=== PATIENT | female | born 1950 | race African-American/Black ===

== ENCOUNTER 2016-06-02 09:50 | Outpatient (CLI) | payer MEDICARE, BC ==
--- NOTE | 2016-06-02 15:45 | RAD ---
RIGHT KNEE THREE VIEWS 06/02/16 Minor degenerative changes are present consisting of osteophytes. There is not significant joint spa ce narrowing. No joint effusion or fracture was seen. 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 The cortex is intact and I doubt that this is a true area of concern. IMPRESSION: A few minor osteophytes, otherwise no acute finding. POS: [facility]
--- NOTE | 2016-06-02 15:46 | RAD ---
LEFT KNEE THREE VIEWS 06/02/16 Comparison is made with views of the right knee. Findings are similar showing a few tiny osteophytes but no joint space narrowing or significant alterations of the articular surfaces. No fracture or j oint effusion was seen. IMPRESSION: Minor osteophytes. POS: [facility]
--- NOTE | 2016-06-02 16:03 | ULT ---
THYROID ULTRASOUND: DATE: 06/02/16. FINDINGS: Ultrasonography of the thyroid gland was performed as a recent MRI of the neck showed some T1 and T2 lesions in the right lobe of the thyroid gland. Documentary images and worksheets were provided an d reviewed from the study. The right lobe measures 4.1 x 1.7 x 1.5 cm. There are at least 3 small lesions within it in the mid dle third of the gland. The largest measures 1.2 cm in diameter and may have a small calcification at its periphery, but appears mostly cystic. The second measures 0.7 cm in diameter and is mostly c ystic. The smallest is 4 mm in diameter and is hypoechoic and may have some solid elements in it. The left lobe of the thyroid gland measures 3.9 x 1.5 x 1.4 cm. There is a tiny 2 mm hypoechoic foc us in its middle third that is too small to completely characterize as to whether it is cystic or so lid. On at least 1 image, there is a suggestion that there could be a calcification at its peripher y, but this is less certain. IMPRESSION: 1. The overall thyroid size is not excessive. 2. Three cystic or hypoechoic lesions in the right lobe of the thyroid gland and 1 tiny 2 mm hypoec hoic lesion in the middle third of the left lobe. These are indeterminate for malignancy, though th e multiple nature of the findings and the fact that most appear cystic mitigates more towards a kt gn cause. Followup is suggested to determine when and how often the patient should be reexamined, o r if any truly bear reason to be biopsied. POS: [facility]
== END 2016-06-02 09:51 | disposition home or self-care (01) ==
LOC: BURULT 09:50
PROVIDERS: ATTEND Physical Medicine & Rehabilitation
DX: E04.1 Nontoxic single thyroid nodule (principal); M25.569 Pain in unspecified knee
CPT/HCPCS: 76536

== ENCOUNTER 2016-09-03 01:29 | Emergency (ER) | payer MEDICARE, BC ==
[2016-09-03] MEDS ORDERED: predniSONE 20 MG TAB ONE (02:46)
[2016-09-03] MEDS ORDERED: HYDROcodone/Acetaminophen 5/325 mg Tablet ONE (02:47)
--- NOTE | 2016-09-03 08:42 | RAD ---
LEFT HIP 2 VIEWS: Date: 09/03/16 Comparison made with the 11/17/15 study. FINDINGS: No acute injury was seen. The hip joint space is normal and the articular surfaces are smooth. There are no particular arthritic changes of concern. No area of bony destruction seen. The adjacent pubi c ring appears intact. There appears to have been prior SI joint fusion bilaterally. IMPRESSION: No acute bony findings. POS: [facility]
== END 2016-09-03 02:52 | disposition home or self-care (01) ==
LOC: BURERS 01:29
DX: M25.552 Pain in left hip (principal); I25.2 Old myocardial infarction; E78.5 Hyperlipidemia, unspecified; I25.10 Atherosclerotic heart disease of native coronary artery without angina pectoris
CPT/HCPCS: J7506

== ENCOUNTER 2018-05-20 16:21 | Emergency (ER) | payer MEDICARE, BC ==
[2018-05-20] MEDS ORDERED: Ketorolac Tromethamine 30 MG/ML VIAL ONE (16:54)
[2018-05-20] MEDS ORDERED: Ondansetron PF 4 MG/2 ML Vial ONE (16:54)
[2018-05-20 17:51] LABS: Bilirubin Small (Negative); Blood, Urine Trace (Negative); Clarity Clear (Clear); Glucose, Urine (Dipstick) Negative (Negative); Leukocyte Trace (Negative); Nitrite Negative (Negative); Protein, Urine (Dipstick) Negative (Neg-Trace); Specific Gravity, Urine 1.025 (1.005-1.030)
[2018-05-20 17:55] LABS: RBC/HPF 0-3 HPF (0-3); WBC/HPF 0-3 HPF (0-3)
[2018-05-20 17:56] LABS: Bacteria/HPF 2+ HPF (None Seen); Other Microscopic Description MUCOUSE THREADS
[2018-05-20 18:26] LABS: #Basophils 0.1 thou/uL (0.0-0.2); #Lymphocytes 0.2 thou/uL (1.20-3.40); #Monocytes 0.2 thou/uL (0.11-0.59); #Neutrophils 6.4 thou/uL (1.40-6.50); %Basophils 0.9 % (0.0-1.0); %Eosinophils 0.1 % (0.0-10.0); %Lymphocytes 3.2 % (21.0-51.0); %Monocytes 3.5 % (0.0-10.0); %Neutrophils 92.3 % (42.0-75.0); Hemoglobin 12.6 g/dL (12.0-16.0); Mean Corpuscular HGB CONC 31.1 g/dL (32.0-36.0); Mean Corpuscular Hemoglobin 26.8 pg (27.0-31.0); Mean Corpuscular Volume 85.9 fL (78.0-98.0); Mean Platelet Volume 6.8 fL (7.4-10.4); Platelet Count 170 thou/uL (130-400); RBC Distribution Width 12.7 % (11.5-14.5)
[2018-05-20] MEDS ORDERED: Morphine 4 MG/ML VIAL ONE (18:26)
[2018-05-20] MEDS ORDERED: Acetaminophen 500 MG TAB ONE (18:27)
[2018-05-20 18:28] LABS: ALT (SGPT) 8 U/L (8-55); AST (SGOT) 14 U/L (5-34); Albumin 3.9 g/dL (3.4-4.8); Alkaline Phosphatase 105 U/L (40-150); Anion Gap 15 mmol/L (10-20); BUN (Urea Nitrogen) 13 mg/dL (9.8-20.1); Bilirubin, Total 0.6 mg/dL (0.2-1.2); Calc. Creatinine Clearance 0 mL/min (70-130); Calcium 9.3 mg/dL (7.8-10.44); Carbon Dioxide 21 mmol/L (23-31); Chloride 108 mmol/L (98-107); Estimated GFR-MDRD 88; Globulin 3.6 g/dL (2.4-3.5); Glucose 108 mg/dL (80-115); Lipase 13 U/L (8-78); Potassium 4.2 mmol/L (3.5-5.1); Protein, Total 7.5 g/dL (6.0-8.3); Sodium 140 mmol/L (136-145)
== END 2018-05-20 18:48 | disposition home or self-care (01) ==
LOC: BURERS 16:21
DX: B34.9 Viral infection, unspecified (principal); I25.2 Old myocardial infarction; E78.5 Hyperlipidemia, unspecified; I25.10 Atherosclerotic heart disease of native coronary artery without angina pectoris; Z87.891 Personal history of nicotine dependence
CPT/HCPCS: 80053; 81003; 81015; 83690; 84484; 85025; 87804; 96361; 96374; 96375; J1885; J2270; J2405

== ENCOUNTER 2020-03-03 22:17 | Emergency (ER) | payer MEDICARE, BC ==
[2020-03-03] MEDS ORDERED: HYDROcodone/Acetaminophen 10/325 mg Tablet ONE (22:59)
[2020-03-03] MEDS ORDERED: Dexamethasone 4 mg/ml Vial ONE (22:59)
== END 2020-03-03 23:11 | disposition home or self-care (01) ==
LOC: BURERS 22:17
DX: G89.29 Other chronic pain (principal); M54.5 Low back pain; M25.551 Pain in right hip; M25.552 Pain in left hip; M25.561 Pain in right knee; M25.562 Pain in left knee; I25.2 Old myocardial infarction; E78.5 Hyperlipidemia, unspecified; E78.00 Pure hypercholesterolemia, unspecified; M19.90 Unspecified osteoarthritis, unspecified site; I25.10 Atherosclerotic heart disease of native coronary artery without angina pectoris; Z87.891 Personal history of nicotine dependence; Z79.899 Other long term (current) drug therapy
CPT/HCPCS: 96372; 99283; J1100

== ENCOUNTER 2020-06-17 09:14 | Emergency (ER) | payer MEDICARE | END 2020-06-17 09:51 | disposition home or self-care (01) | LOC: BURERS 09:14 | DX: M77.9 Enthesopathy, unspecified (principal); I25.2 Old myocardial infarction; E78.5 Hyperlipidemia, unspecified; I25.10 Atherosclerotic heart disease of native coronary artery without angina pectoris; Z87.891 Personal history of nicotine dependence; Z79.899 Other long term (current) drug therapy | CPT/HCPCS: 99281 ==

== ENCOUNTER 2020-07-03 20:30 | Emergency (ER) | payer MEDICARE ==
[2020-07-03 21:06] LABS: #Basophils 0.1 thou/uL (0.0-0.2); #Lymphocytes 1.8 thou/uL (1.20-3.40); #Monocytes 0.4 thou/uL (0.11-0.59); #Neutrophils 2.7 thou/uL (1.40-6.50); %Basophils 2.2 % (0.0-1.0); %Eosinophils 0.7 % (0.0-10.0); %Lymphocytes 36.6 % (21.0-51.0); %Monocytes 7.8 % (0.0-10.0); %Neutrophils 52.7 % (42.0-75.0); Hemoglobin 12.8 g/dL (12.0-16.0); Mean Corpuscular Hemoglobin 27.2 pg (27.0-31.0); Mean Corpuscular Volume 87.5 fL (78.0-98.0); Mean Platelet Volume 7.6 fL (7.4-10.4); Platelet Count 252 thou/uL (130-400); RBC Distribution Width 13.5 % (11.5-14.5)
[2020-07-03 21:20] LABS: ALT (SGPT) 11 U/L (8-55); AST (SGOT) 13 U/L (5-34); Albumin 4.2 g/dL (3.4-4.8); Alkaline Phosphatase 103 U/L (40-110); Anion Gap 16 mmol/L (10-20); BUN (Urea Nitrogen) 10 mg/dL (9.8-20.1); Bilirubin, Total 0.3 mg/dL (0.2-1.2); CK (CPK) 98 U/L (29-168); Calc. Creatinine Clearance 0 mL/min (70-130); Calcium 9.6 mg/dL (7.8-10.44); Carbon Dioxide 24 mmol/L (23-31); Chloride 106 mmol/L (98-107); Globulin 3.8 g/dL (2.4-3.5); Glucose 125 mg/dL (80-115); Potassium 3.8 mmol/L (3.5-5.1); Sodium 142 mmol/L (136-145)
[2020-07-03] MEDS ORDERED: Enoxaparin Sodium 100 MG/ML SYRINGE ONE (21:26)
[2020-07-03] MEDS ORDERED: Nitroglycerin 0.4 MG TAB 1 EACH ONE (21:26)
[2020-07-03] MEDS ORDERED: Aspirin Chewable 81 MG TAB ONE (21:26)
[2020-07-03] MEDS ORDERED: Morphine 2 MG/ML VIAL ONE (21:56)
[2020-07-03] MEDS ORDERED: Nitroglycerin 2% Ointment 1 INCH/1 GM Packet ONE (21:56)
[2020-07-03] MEDS ORDERED: Morphine 4 MG/ML VIAL ONE (21:56)
[2020-07-03 23:20] LABS: SARS-CoV-2 NAA Rapid Test Not Detected (NotDetected)
--- NOTE | 2020-07-04 07:26 | RAD ---
PORTABLE CHEST: DATE: 07/03/2020. FINDINGS: An AP portable film at 210 is compared with a 08/10/2015 study. Mild cardiomegaly is about the same with very little interval change. There is no vascular congestio n, edema, or pleural effusion. The lungs are clear. IMPRESSION: No acute thoracic findings. POS: [facility]
== END 2020-07-03 22:47 | disposition home or self-care (01) ==
LOC: BURERS 20:30 → BURMED 21:30 → UNDOADMOB 21:30 → BURERS 22:47
DX: I20.9 Angina pectoris, unspecified (principal); Z20.822 Contact with and (suspected) exposure to COVID-19; R94.31 Abnormal electrocardiogram [ECG] [EKG]; I25.2 Old myocardial infarction; E78.5 Hyperlipidemia, unspecified; E78.00 Pure hypercholesterolemia, unspecified; Z87.891 Personal history of nicotine dependence; Z79.82 Long term (current) use of aspirin; Z79.899 Other long term (current) drug therapy
CPT/HCPCS: 0241U; 71045; 80053; 82550; 83880; 84484; 85025; 93005; 94760; J2270; 96372; 96374; J1650

== ENCOUNTER 2020-09-03 23:38 | Emergency (ER) | payer MEDICARE ==
[2020-09-04 00:17] LABS: Bilirubin Negative (Negative); Blood, Urine Negative (Negative); Clarity Clear (Clear); Glucose, Urine (Dipstick) Negative (Negative); Ketone, Urine Negative (Negative); Leukocyte Negative (Negative); Nitrite Negative (Negative); Protein, Urine (Dipstick) Negative (Neg-Trace); Urobilinogen 0.2 mg/dL (Less than 2)
[2020-09-04] MEDS ORDERED: Ketorolac Tromethamine 30 MG/ML VIAL ONE (00:39)
== END 2020-09-04 01:00 | disposition home or self-care (01) ==
LOC: BURERS 23:38
DX: M54.5 Low back pain (principal); I25.2 Old myocardial infarction; E78.5 Hyperlipidemia, unspecified; E78.00 Pure hypercholesterolemia, unspecified; I10 Essential (primary) hypertension; Z87.891 Personal history of nicotine dependence; Z79.82 Long term (current) use of aspirin; Z79.899 Other long term (current) drug therapy
CPT/HCPCS: 81003; 96372; 99283; J1885

== ENCOUNTER 2021-03-12 17:06 | Emergency (ER) | payer MEDICARE ==
[2021-03-12] MEDS ORDERED: Triamcinolone 40 MG/ML VIAL ONE (17:36)
== END 2021-03-12 17:45 | disposition home or self-care (01) ==
LOC: BURERS 17:06
DX: L25.9 Unspecified contact dermatitis, unspecified cause (principal); I10 Essential (primary) hypertension; I25.2 Old myocardial infarction; E78.5 Hyperlipidemia, unspecified; Z87.891 Personal history of nicotine dependence; Z79.899 Other long term (current) drug therapy
CPT/HCPCS: 96372; 99282; J3301

== ENCOUNTER 2022-05-28 10:50 | Emergency (ER) | payer MEDICARE ==
[2022-05-28] MEDS ORDERED: Ketorolac Tromethamine 60 MG/2 ML VIAL ONE (11:33)
== END 2022-05-28 11:41 | disposition home or self-care (01) ==
LOC: BURERS 10:50
DX: M54.41 Lumbago with sciatica, right side (principal); Z20.822 Contact with and (suspected) exposure to COVID-19; I10 Essential (primary) hypertension; I25.2 Old myocardial infarction; E78.5 Hyperlipidemia, unspecified; Z87.891 Personal history of nicotine dependence
CPT/HCPCS: 87804; 96372; 99283; J1885; U0003; U0005

== ENCOUNTER 2023-01-02 12:52 | Emergency (ER) | payer MEDICARE | END 2023-01-02 15:34 | disposition home or self-care (01) | LOC: BURERS 12:52 | DX: M54.12 Radiculopathy, cervical region (principal); I10 Essential (primary) hypertension; I25.10 Atherosclerotic heart disease of native coronary artery without angina pectoris; E78.5 Hyperlipidemia, unspecified; Z87.891 Personal history of nicotine dependence | CPT/HCPCS: 72125 ==

== ENCOUNTER 2024-03-03 17:53 | Emergency (ER) | payer MEDICARE ==
[~2024-03-03 17:53] MED LIST: Iopamidol 370 76% 100 ML VIAL ONE
[2024-03-03 18:26] LABS: Hematocrit 38.1 % (36.0-47.0); Hemoglobin 11.7 g/dL (12.0-16.0); Mean Corpuscular HGB CONC 30.7 g/dL (32.0-36.0); Mean Corpuscular Hemoglobin 27.9 pg (27.0-31.0); Mean Corpuscular Volume 90.9 fl (78.0-98.0); Mean Platelet Volume 6.5 fL (7.4-10.4); Platelet Count 212 10x3/uL (130-400); RBC Distribution Width 11.5 % (11.5-14.5); Red Blood Cell (RBC) Count 4.19 mill/uL (4.20-5.40); White Blood Cell (WBC) Count 6.1 10x3/uL (4.8-10.8)
[2024-03-03 18:32] LABS: ALT (SGPT) 14 U/L (8-55); AST (SGOT) 15 U/L (5-34); Albumin 3.4 g/dL (3.4-4.8); Alkaline Phosphatase 72 U/L (40-110); Anion Gap 12 mmol/L (10-20); BUN (Urea Nitrogen) 12 mg/dL (9.8-20.1); Bilirubin, Total 0.3 mg/dL (0.2-1.2); Calc. Creatinine Clearance 0 mL/min (70-130); Calcium 9.3 mg/dL (7.8-10.44); Carbon Dioxide 23 mmol/L (23-31); Chloride 111 mmol/L (98-107); Estimated GFR 80; Globulin 3.7 g/dL (2.4-3.5); Glucose 105 mg/dL (83-110); Lipase 49 U/L (8-78); Potassium 3.8 mmol/L (3.5-5.1); Protein, Total 7.1 g/dL (5.8-8.1); Sodium 142 mmol/L (136-145)
[2024-03-03 18:40] LABS: Eosinophils 1 % (0-10); Lymphocytes 30 % (21-51); MDiff Complete? YES; Monocytes 8 % (0-10); Neutrophil 61 % (42-75)
[2024-03-03 18:44] LABS: Bilirubin Negative (Negative); Blood, Urine Negative (Negative); Clarity Clear (Clear); Glucose, Urine (Dipstick) Negative (Negative); Ketone, Urine Negative (Negative); Leukocyte Negative (Negative); Nitrite Negative (Negative); Protein, Urine (Dipstick) Negative (Neg-Trace); Urobilinogen 0.2 mg/dL (Less than 2); pH, Urine 5.5 (5.0-9.0)
[2024-03-03 18:47] LABS: Specific Gravity, Urine 1.004 (1.002-1.036)
[2024-03-03 18:51] LABS: Bacteria/HPF Rare-Few HPF (None Seen); CAUTI Indications for Culture Dysuria,urgency,freq; RBC/HPF None Seen HPF (0-3); Squamous Epithelial 0-3 HPF (0-3); Urine Culture Reflex No No; WBC/HPF 0-3 HPF (0-3)
[2024-03-03] MEDS ORDERED: Aspirin Chewable 81 MG TAB ONE (19:25)
[2024-03-03] MEDS ORDERED: Dicyclomine 20 MG/2 ML VIAL ONE (19:25)
[2024-03-03 19:35] LABS: Troponin I 0.011 ng/mL (< 0.028)
[2024-03-03] MEDS ORDERED: Nitroglycerin 0.4 MG TAB 1 EACH ONE (19:38)
== END 2024-03-03 20:47 | disposition home or self-care (01) ==
LOC: BURERS 17:53
DX: R10.84 Generalized abdominal pain (principal); R07.9 Chest pain, unspecified; I10 Essential (primary) hypertension; I25.10 Atherosclerotic heart disease of native coronary artery without angina pectoris; E78.5 Hyperlipidemia, unspecified; I25.2 Old myocardial infarction; Z55.6 Problems related to health literacy; Z87.891 Personal history of nicotine dependence
CPT/HCPCS: 71045; 74177; 80053; 81001; 83690; 84484; 85025; 96372; 99285; Q9967

== ENCOUNTER 2024-04-05 14:47 | Emergency (ER) | payer MEDICARE ==
[2024-04-05] MEDS ORDERED: Ketorolac Tromethamine 30 MG (1 mL) VIAL ONE (15:14)
[2024-04-05] MEDS ORDERED: Diazepam 10 MG/2 ML SYRINGE ONE (15:15)
== END 2024-04-05 16:04 | disposition home or self-care (01) ==
LOC: BURERS 14:47
DX: M62.830 Muscle spasm of back (principal); M54.2 Cervicalgia; I10 Essential (primary) hypertension; I25.2 Old myocardial infarction; E78.5 Hyperlipidemia, unspecified; I25.10 Atherosclerotic heart disease of native coronary artery without angina pectoris; Z87.891 Personal history of nicotine dependence
CPT/HCPCS: J1885; J3360; 96372; 99283

== ENCOUNTER 2024-04-29 09:57 | Emergency (ER) | payer MEDICARE ==
[2024-04-29] MEDS ORDERED: Cephalexin 250 MG CAP ONE (10:19)
== END 2024-04-29 10:26 | disposition home or self-care (01) ==
LOC: BURERS 09:57
DX: T63.441A Toxic effect of venom of bees, accidental (unintentional), initial encounter (principal); L03.113 Cellulitis of right upper limb; I10 Essential (primary) hypertension; I25.2 Old myocardial infarction; I25.10 Atherosclerotic heart disease of native coronary artery without angina pectoris; Z87.891 Personal history of nicotine dependence; Z95.0 Presence of cardiac pacemaker
CPT/HCPCS: 99282

== ENCOUNTER 2024-05-19 14:38 | Emergency (ER) | payer MEDICARE, OTHER ==
[2024-05-19] MEDS ORDERED: Ketorolac Tromethamine 60 MG/2 ML VIAL ONE (14:59)
== END 2024-05-19 15:44 | disposition home or self-care (01) ==
LOC: BURERS 14:38
DX: M54.2 Cervicalgia (principal); I10 Essential (primary) hypertension; I25.10 Atherosclerotic heart disease of native coronary artery without angina pectoris; I25.2 Old myocardial infarction; E78.5 Hyperlipidemia, unspecified; Z87.891 Personal history of nicotine dependence
CPT/HCPCS: 72040; 96372; 99283; J1885

== ENCOUNTER 2025-04-27 10:24 | Emergency (ER) | payer MEDICARE ==
[2025-04-27] MEDS ORDERED: Ketorolac Tromethamine 30 MG (1 mL) VIAL ONE (10:52)
[2025-04-27 11:17] LABS: #Basophils 0.0 thou/uL (0.0-0.2); #Eosinophils 0.0 thou/uL (0.0-0.7); #Lymphocytes 0.9 thou/uL (1.20-3.40); #Monocytes 0.3 thou/uL (0.11-0.59); #Neutrophils 4.8 thou/uL (1.40-6.50); %Basophils 0.5 % (0.0-1.0); %Eosinophils 0.2 % (0.0-10.0); %Lymphocytes 15.2 % (21.0-51.0); %Monocytes 5.5 % (0.0-10.0); %Neutrophils 78.6 % (42.0-75.0); Hematocrit 34.8 % (36.0-47.0); Hemoglobin 10.5 g/dL (12.0-16.0); Mean Corpuscular Hemoglobin 27.2 pg (27.0-31.0); Mean Corpuscular Volume 90.0 fl (78.0-98.0); Platelet Count 225 10x3/uL (130-400); Red Blood Cell (RBC) Count 3.87 mill/uL (4.20-5.40); White Blood Cell (WBC) Count 6.1 10x3/uL (4.8-10.8)
[2025-04-27 11:35] LABS: ALT (SGPT) Less than 7 U/L (Less than 34); AST (SGOT) 17 U/L (11-34); Albumin 3.6 g/dL (3.1-4.5); Alkaline Phosphatase 114 U/L (40-110); Anion Gap 16 mmol/L (10-20); BUN (Urea Nitrogen) 15 mg/dL (9.8-20.1); Bilirubin, Total 0.6 mg/dL (0.3-1.2); Calc. Creatinine Clearance 0 mL/min (70-130); Calcium 9.7 mg/dL (7.8-10.44); Carbon Dioxide 22 mmol/L (23-31); Chloride 107 mmol/L (98-107); Globulin 4.0 g/dL (2.4-3.5); Glucose 110 mg/dL (83-110); Lipase 24 U/L (8-78); Potassium 4.0 mmol/L (3.5-5.1); Sodium 141 mmol/L (136-145)
[2025-04-27] MEDS ORDERED: Iopamidol 370 76% 100 ML VIAL ONE (13:17)
== END 2025-04-27 14:20 | disposition home or self-care (01) ==
LOC: BURERS 10:24
DX: S42.031D Displaced fracture of lateral end of right clavicle, subsequent encounter for fracture with routine healing (principal); S22.41XD Multiple fractures of ribs, right side, subsequent encounter for fracture with routine healing; G89.29 Other chronic pain; Z76.0 Encounter for issue of repeat prescription; I10 Essential (primary) hypertension; I25.10 Atherosclerotic heart disease of native coronary artery without angina pectoris; I25.2 Old myocardial infarction; Z87.891 Personal history of nicotine dependence; V89.2XXD Person injured in unspecified motor-vehicle accident, traffic, subsequent encounter
CPT/HCPCS: 36415; 71260; 74177; 80053; 83690; 85025; 96374; 96375; 96376; J1885; J3010; Q9967